=== PATIENT | male | born 1945 | race African-American/Black ===

== ENCOUNTER 2017-04-15 10:45 | Inpatient (IN) | payer MEDICARE ==
[2017-04-15 11:29] LABS: #Basophils 0.1 thou/uL (0.0-0.2); #Lymphocytes 1.4 thou/uL (1.20-3.40); #Monocytes 1.1 thou/uL (0.11-0.59); #Neutrophils 17.3 thou/uL (1.40-6.50); %Basophils 0.3 % (0.0-1.0); %Eosinophils 0.1 % (0.0-10.0); %Lymphocytes 7.1 % (21.0-51.0); %Monocytes 5.5 % (0.0-10.0); Hematocrit 41.6 % (42.0-52.0); Red Blood Cell (RBC) Count 4.63 mill/uL (4.70-6.10); White Blood Cell (WBC) Count 19.9 thou/uL (4.8-10.8)
[2017-04-15 11:48] LABS: Troponin I 0.081 ng/mL (< 0.028)
--- NOTE | 2017-04-15 11:49 | RAD ---
PORTABLE CHEST ONE VIEW: Date: 04-15-17 Time: 10:59 a.m. History: Altered mental status. FINDINGS: Comparison made with 10-16-16. The heart size is normal. The lungs are well expanded without confluent areas of consolidation, pneu mothorax, elsie pleural edema or pleural effusions. IMPRESSION: No radiographic evidence of acute cardiopulmonary process. POS: H
[2017-04-15 11:52] LABS: ALT (SGPT) 11 U/L (8-55); AST (SGOT) 38 U/L (5-34); Alkaline Phosphatase 78 U/L (40-150); Anion Gap 14 mmol/L (10-20); BUN (Urea Nitrogen) 12 mg/dL (8.4-25.7); Bilirubin, Total 1.4 mg/dL (0.2-1.2); Calc. Creatinine Clearance 0 mL/min (70-130); Calcium 11.4 mg/dL (7.8-10.44); Carbon Dioxide 20 mmol/L (23-31); Chloride 109 mmol/L (98-107); Estimated GFR-MDRD 65; Globulin 4.3 g/dL (2.4-3.5); Lactic Acid - Sepsis 2.1 mmol/L (0.5-2.2); Protein, Total 8.3 g/dL (5.8-8.1)
[2017-04-15] MEDS ORDERED: Piperacillin/Tazobactam 4.5 GM VIAL ONE ×2 (11:56)
[2017-04-15] MEDS ORDERED: Sodium Chloride 0.9% 100 ML ONE (11:57)
--- NOTE | 2017-04-15 12:44 | CT ---
BRAIN CT WITHOUT IV CONTRAST: History: 71-year-old male with altered mental status, fever. Comparison: 10-16-16 FINDINGS: Focal area of soft tissue swelling/injury over the posterior parietal region just to the right of mi dline. There is some atrophy and chronic white matter ischemic changes. There are several circumscri bed areas of lacunar infarct involving the right basal ganglia and periventricular region. There are some sinus mucosal changes with some possible minimal blood or fluid in the left maxillary sinus. T he mastoids appear clear. IMPRESSION: Atrophy and chronic white matter ischemic changes. Several old right basal ganglia and periventricul ar lacunar infarcts. Right sided focal scalp swelling/injury over the right parietal region of the s kull just to the right of midline. Sinus mucosal disease with a small amount of fluid in the left ma xillary sinus, possibly blood. POS: SAE
[2017-04-15] MEDS ORDERED: Calcium Carbonate 500 MG ChewTAB PO PRN (12:45)
[2017-04-15] MEDS ORDERED: Dextrose 5% in Water 1,000 ML IV PRN (12:45)
[2017-04-15] MEDS ORDERED: Senokot 8.6 MG TAB PO PRN ×2 (12:45)
[2017-04-15] MEDS ORDERED: Bisacodyl 5 MG TAB PO PRN ×2 (12:45)
[2017-04-15] MEDS ORDERED: Benzonatate 100 MG CAP PO PRN (12:45)
[2017-04-15] MEDS ORDERED: Loratadine 10 MG TAB PO PRN (12:45)
[2017-04-15] MEDS ORDERED: Ondansetron HCl/PF 4 MG/2 ML Vial IVP PRN (12:45)
[2017-04-15] MEDS ORDERED: HumaLOG 300 UNITS/3 ML VIAL SC PRN ×2 (12:45)
[2017-04-15] MEDS ORDERED: Sodium Chloride 0.9% 1,000 ML IV SCH (12:45)
[2017-04-15] MEDS ORDERED: Mag-Al 1200 mg/1200 mg/30 ML UDCUP PO PRN (12:45)
[2017-04-15] MEDS ORDERED: Diabetic Tussin 200 MG/10 ML UDCUP PO PRN (12:45)
[2017-04-15] MEDS ORDERED: Famotidine 20 MG TAB PO SCH (12:45)
[2017-04-15] MEDS ORDERED: Nitroglycerin 0.4 MG TAB (25 Tab Bottle) SL PRN (12:45)
[2017-04-15] MEDS ORDERED: Dextrose 50% Abboject 50 ML SYRINGE SLOW IVP PRN (12:45)
[2017-04-15 12:54] LABS: Bilirubin Negative (Negative); Blood, Urine Large (Negative); Glucose, Urine (Dipstick) Negative (Negative); Ketone, Urine Trace mg/dL (Negative); Nitrite Negative (Negative); Protein, Urine (Dipstick) 100 mg/dL (Neg-Trace); Urobilinogen 0.2 mg/dL (0.2-1.0)
[2017-04-15 12:55] LABS: Bacteria/HPF None Seen HPF (None Seen); Hyaline Casts/LPF 0-3 HYALINE CAST LPF (0-3 Hyaline); RBC/HPF 21-50 HPF (0-3); Squamous Epithelial None Seen HPF (0-3); WBC/HPF 0-3 HPF (0-3)
[2017-04-15] MEDS ORDERED: Potassium Chloride 20 MEQ TAB ONE (12:55)
[2017-04-15 15:51] LABS: Troponin I 0.066 ng/mL (< 0.028)
--- NOTE | 2017-04-15 16:32 | HP ---
DATE OF ADMISSION: 04/15/2017 PRIMARY CARE PHYSICIAN: Dr. Candido Smith. CHIEF COMPLAINT: Altered mental status and found down on the floor. HISTORY OF PRESENT ILLNESS: Mr. Yan is a pleasant 71-year-old male with past medical history of diabetes, hypertension, dyslipidemia, multiple UTIs and CVA with residual left-sided weakness who presented to the emergency room with the above-mentioned complaints. History is mainly obtained by the patient himself who was awake, alert, oriented x3 by the time I have examined him. Case has been discussed with the admitting ER physician, Dr. Eldridge and electronic medical records have been reviewed. The patient was last seen in our facility in 09/2016 for dizziness and was treated for orthostatic hypotension. CVA workup was done and was unremarkable at that time. Today Mr. Yan reported that he has been feeling poorly for the last 4 or 5 days. He has been feeling dizzy and very weak. He has been having complaints of burning with urination ongoing multiple times a day. He reports that he gets urinary tract infections easily. This morning he was feeling the same. He has been also having hot and cold spells and was feeling really chill. He became progressively worse this morning and just could not stand up and slumped to the floor. He denies any falls. He denies any loss of consciousness. He denies hitting his head or any warehouse of his body. He was found sitting down on the floor by his son who promptly brought him to the emergency room. His son is the primary demonstrator electric gas appliances for this patient. In the emergency room, he was found to be fever with a temperature of 101.8 degrees rectally. Otherwise, hemodynamically stable. Blood pressure 134/90, oxygen saturation 100% on room air. Initial workup showed leukocytosis with WBCs over 19,000 with left shift. Serum chemistries show borderline cardiac enzymes and an elevated creatinine of 1.32. His lactic acid is within normal limit at 2.1. Urinalysis showed moderate leukocyte esterase, suggesting UTI. He received Zosyn in the Emergency Room along with IV fluids, aspirin, and potassium chloride for low potassium. He is now being admitted to medical floor with a presumptive diagnosis of sepsis secondary to urinary tract infection and indeterminate troponins. PAST MEDICAL HISTORY: 1. History of cerebrovascular accident with residual left-sided weakness. 2. Hypertension. 3. Diabetes mellitus type 2. 4. History of legal blindness. 5. Dyslipidemia. 6. Multiple UTIs. 7. 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 PAST SURGICAL HISTORY: Orthopedic surgery of the left thumb. PSYCHIATRIC HISTORY: No anxiety or depression. FAMILY HISTORY- no CAD,CVA SOCIAL HISTORY: He lives by himself, but his son is official care provider for him. He has no history of drug or alcohol abuse. He admits to chewing tobacco. ALLERGIES: No known medication allergies. CURRENT MEDICATIONS: As follow; aspirin 81 mg daily, Plavix 75 mg daily, atorvastatin 20 mg daily, glimepiride 1 mg p.o. daily, lisinopril/ hydrochlorothiazide 10/12.5 mg p.o. daily, metoprolol tartrate 50 mg p.o. b.i.d. , Lyrica 100 mg p.o. b.i.d. and metformin b.i.d. All of the medication dosages would need to be further confirmed. REVIEW OF SYSTEMS: The following complete review of systems was negative, unless otherwise mentioned in the HPI or below: Constitutional: Weight loss or gain, ability to conduct usual activities. Skin: Rash, itching. Eyes: Double vision, pain. ENT/Mouth: Nose bleeding, neck stiffness, pain, tenderness. Cardiovascular: Palpitations, dyspnea on exertion, orthopnea. Respiratory: Shortness of breath, wheezing, cough, hemoptysis, fever or night sweats. Gastrointestinal: Poor appetite, abdominal pain, heartburn, nausea, vomiting, constipation, or diarrhea. Genitourinary: Urgency, frequency, dysuria, nocturia. Musculoskeletal: Pain, swelling. Neurologic/Psychiatric: Anxiety, depression. Allergy/Immunologic: Skin rash, bleeding tendency. LABORATORY DATA: CBC shows WBC 19.9 with 87% neutrophils, hemoglobin 14, platelet count 148. Serum chemistry: Potassium 3.3, chloride 109, bicarbonate 20, creatinine 1.32 with baseline anywhere from 1.2-1.3, calcium 11.4, total bilirubin 1.4, AST 38, CK-MB 7.5, troponin 0.081. Urinalysis shows large blood and moderate leukocyte esterase. Chest x-ray upon my review has no evidence to suggest pneumonia. There is no pulmonary vascular congestion or effusion. CT scan of the brain shows chronic small vessel ischemic changes with several old right basal ganglia and periventricular lacunar infarcts. He does have some evidence of right-sided scalp swelling of the right parietal region of the skull. 12-lead EKG by my interpretation has normal sinus rhythm at 91 beats per minute. PHYSICAL EXAMINATION: VITAL SIGNS: Most recent include blood pressure 126/65, pulse of 83, respirations 18, saturating 96% on room air, temperature 101.8. GENERAL: Sitting upright in bed, awake, alert, oriented x3, does not appear toxic, in no acute distress, able to provide all of the history and follow commands. His son is at bedside. HEENT: Legal blindness noted. Mucous membranes are slightly dry. No oropharyngeal exudate or erythema. Head is normocephalic, atraumatic. Extraocular movements intact. NECK: Supple without any lymphadenopathy, JVD or bruit. CHEST: Clear to auscultation without any wheezing, rales or rhonchi. CARDIOVASCULAR: Rhythm is regular without any murmur, rubs or gallops. ABDOMEN: Slightly tender diffusely, more so in the suprapubic region. No guarding, rebound or rigidity. EXTREMITIES: Free of any cyanosis, clubbing, or edema. NEUROLOGIC: Left leg weakness noticed. It is 3/5 in strength. Otherwise, no focal neurological deficits. He is awake, alert, oriented x3. SKIN: Free of any rashes or bruises. Feels warm and dry to touch. PSYCHIATRIC: Normal affect. VASCULAR: +2 pedal pulses felt bilaterally. IMPRESSION AND PLAN: 1. Sepsis, secondary to urinary tract infection. At this time, I do not have any baseline urinalysis or culture for this patient. He will be treated with broad spectrum IV antibiotics, mainly Rocephin and levofloxacin for now. Urine cultures and blood cultures have been sent and we kia follow the final result and taper antibiotic depending upon the results. He will be treated with gentle IV fluid hydration. He has received 2.5 liters of IV fluids in the emergency room. We will continue at a slower rate for now. 2. Elevated troponin, most likely demand ischemia along with rhabdomyolysis by being on the floor for a long period. We will check a CPK and continue to trend serial cardiac enzymes. His aspirin, statin, and beta puma will be restarted. He had a transthoracic echocardiogram done in 09/2016 which showed preserved LV function with suggestion of some diastolic dysfunction, but without any valvular or wall motion abnormality. 3. Hypokalemia. We will replace the potassium and recheck. This is most likely secondary to dehydration. 4. Acute kidney insufficiency. Once again, this is likely secondary to either rhabdomyolysis or poor p.o. intake in the last few days when he has been feeling sick. We will hydrate him and continue to monitor the trend. Avoid any nephrotoxic medications including FAWN inhibitors or ARBs. 5. Hypercalcemia. This seems to be chronic thing for this patient. His calcium has been as high as 12.3 in 2012 on chart review. I do not know if this has been worked up by his primary care physician as an outpatient. He has 1 PTH that was ordered in 09/2016 which was 255. He seems to have a primary hyperparathyroidism. I would recommend further workup as an outpatient. Here in the hospital, we will continue to monitor his serum calcium and treat with intravenous fluids for now. 6. History of cerebrovascular accident. We will continue with his home medication of aspirin and Plavix along with statin. 7. Diabetes mellitus. We will use insulin sliding scale and hold metformin for now to prevent further renal injury. 8. Hypertension. The patient will be continued on his metoprolol, but we will hold his FAWN inhibitor and hydrochlorothiazide to prevent renal injury at this time. 9. Leukocytosis, secondary to sepsis as per #1. We will monitor the counts. 10. Code status: FULL CODE. I have discussed this with the patient and his son who is present in the room. 11. Deep venous thrombosis and gastrointestinal prophylaxis. 12. Add p.r.n. medication orders. DISPOSITION: The patient will be admitted to medical floor for sepsis secondary to UTI. Further management will depend upon his clinical course and the results of his cultures. Estimated length of stay at this time is 2-3 midnight at the very least. We will add OT, PT ordered at this time. He may benefit from either inpatient rehab or fdc facility prior to discharge. VERN
[2017-04-15] MEDS: Sodium Chloride 0.9% 1,000 ML IV SCH ×2 (16:49→21:50)
[2017-04-15] MEDS: cefTRIAXone\\ROCEPHIN 2 GM in Sodium Chloride 0.9% 100 ML IVPB SCH (16:49)
[2017-04-15] MEDS: hydrALAZINE 20 MG/ML VIAL SLOW IVP PRN (18:14)
[2017-04-15] MEDS ORDERED: Pregabalin 50 MG CAP PO SCH (18:30)
[2017-04-15 19:01] LABS: Troponin I 0.058 ng/mL (< 0.028)
[2017-04-15 19:16] VITALS: BMI 25.8
[2017-04-15] MEDS: Heparin 5,000 UNITS/ML VIAL SC SCH (21:45)
[2017-04-15] MEDS: Acetaminophen 325 MG TAB PO PRN (21:46)
[2017-04-15] MEDS: Metoprolol Tartrate 50 MG TAB PO SCH (21:46)
[2017-04-16] MEDS: hydrALAZINE 20 MG/ML VIAL SLOW IVP PRN ×2 (04:49→12:25)
[2017-04-16 06:42] LABS: Anion Gap 13 mmol/L (10-20); BUN (Urea Nitrogen) 12 mg/dL (8.4-25.7); Calc. Creatinine Clearance 70 mL/min (70-130); Calcium 11.2 mg/dL (7.8-10.44); Carbon Dioxide 19 mmol/L (23-31); Chloride 114 mmol/L (98-107); Estimated GFR-MDRD 75
[2017-04-16 06:44] LABS: Hematocrit 41.1 % (42.0-52.0); Mean Platelet Volume 9.4 fL (7.4-10.4); Red Blood Cell (RBC) Count 4.66 mill/uL (4.70-6.10); White Blood Cell (WBC) Count 20.3 thou/uL (4.8-10.8)
[2017-04-16 06:54] LABS: Band 6 % (5-11); Neutrophil 78 % (42-75)
[2017-04-16] MEDS: Sodium Chloride 0.9% 1,000 ML IV SCH (08:23)
[2017-04-16] MEDS: Aspirin 81 mg Enteric Coated Tablet PO SCH (08:27)
[2017-04-16] MEDS: Clopidogrel Bisulfate 75 MG TAB PO SCH (08:27)
[2017-04-16] MEDS: Metoprolol Tartrate 50 MG TAB PO SCH ×2 (08:27→20:01)
[2017-04-16] MEDS: Pregabalin 50 MG CAP PO SCH ×2 (08:27→20:02)
[2017-04-16] MEDS: Heparin 5,000 UNITS/ML VIAL SC SCH ×2 (08:29→20:01)
--- NOTE | 2017-04-16 12:19 | PDOC.PN ---
- Subjective Encounter Start Date: 04/16/17 Encounter Start Time: 10:30 -: old records requested/rev Patient seen and examined. No new complaints. No overnight events, no fever - Objective MAR Reviewed: Yes Vital Signs & Weight: Vital Signs (12 hours) Temp Pulse Resp BP BP Pulse Ox 04/16/17 08:00 98.7 F 87 20 98 04/16/17 07:47 98.7 F 87 20 161/83 H 98 04/16/17 06:36 98.6 F 89 18 170/93 H 99 04/16/17 05:43 166/84 H 04/16/17 04:49 80 170/93 H 04/16/17 04:35 98.9 F 80 18 Weight Weight 185 lb 3 oz I&O: 04/15/17 04/16/17 04/17/17 06:59 06:59 06:59 Output Total 1450 Balance -1450 Result Diagrams: 04/16/17 06:00 04/16/17 06:00 Additional Labs: Accuchecks 04/16/17 04/15/17 04/15/17 04:36 21:07 16:39 POC Glucose 80 97 124 H Phys Exam - Physical Examination Constitutional: NAD HEENT: PERRLA, moist MMs, sclera anicteric Neck: no JVD, supple Respiratory: no wheezing, no rales, no rhonchi Cardiovascular: RRR, no significant murmur, no rub Gastrointestinal: soft, non-tender, no distention, positive bowel sounds Musculoskeletal: no edema, pulses present Neurological: non-focal, normal sensation, moves all 4 limbs Psychiatric: normal affect, A&O x 3 Skin: no rash, normal turgor Dx/Plan (1) Acute kidney failure Status: Acute (2) Demand ischemia Code(s): I24.8 - OTHER FORMS OF ACUTE ISCHEMIC HEART DISEASE Status: Acute (3) Hypercalcemia Code(s): E83.52 - HYPERCALCEMIA Status: Acute (4) Hypokalemia Code(s): E87.6 - HYPOKALEMIA Status: Acute (5) Sepsis Code(s): A41.9 - SEPSIS, UNSPECIFIED ORGANISM Status: Acute (6) UTI (urinary tract infection) Status: Acute (7) CAD (coronary artery disease) Code(s): I25.10 - ATHSCL HEART DISEASE OF [place] CORONARY ARTERY W/O ANG PCTRS Status: Chronic (8) DMII (diabetes mellitus, type 2) Status: Chronic (9) Dyslipidemia Code(s): E78.5 - HYPERLIPIDEMIA, UNSPECIFIED Status: Chronic (10) HTN (hypertension) Code(s): I10 - ESSENTIAL (PRIMARY) HYPERTENSION Status: Chronic (11) History of CVA (cerebrovascular accident) Code(s): Z86.73 - PRSNL HX OF TIA (TIA), AND CEREB INFRC W/O RESID DEFICITS Status: Chronic - Plan cont current plan of care * reduce IVF * continue rocephin and levaquin * get CT stone protcol * medication reviewed as below * symptomatic treatment * follow up on culture * repeat labs tomorrow. Review of Systems - Review of Systems Constitutional: negative: Fever, Chills, Sweats, Weakness, Malaise, Other Eyes: negative: Pain, Vision Change, Conjunctivae Inflammation, Eyelid Inflammation, Redness, Other ENT: negative: Ear Pain, Ear Discharge, Nose Pain, Nose Discharge, Nose Congestion, Mouth Pain, Mouth Swelling, Throat Pain, Throat Swelling, Other Respiratory: negative: Cough, Dry, Shortness of Breath, Hemoptysis, SOB with Excertion, Pleuritic Pain, Sputum, Wheezing Cardiovascular: negative: Chest Pain, Palpitations, Orthopnea, Paroxysmal Noc. Dyspnea, Edema, Light Headedness, Other Gastrointestinal: negative: Nausea, Vomiting, Abdominal Pain, Diarrhea, Constipation, Melena, Hematochezia, Other Genitourinary: negative: Dysuria, Frequency, Incontinence, Hematuria, Retention , Other Musculoskeletal: negative: Neck Pain, Shoulder Pain, Arm Pain, Back Pain, Hand Pain, Leg Pain, Foot Pain, Other - Medications/Allergies Allergies/Adverse Reactions: Allergies Allergy/AdvReac Type Severity Reaction Status Date / Time No Known Allergies Allergy Verified 04/15/17 14:52 Medications: Current Medications Acetaminophen (Tylenol) 650 mg PO Q4H PRN PRN Reason: Headache/Fever or Pain Last Admin: 04/15/17 21:46 Dose: 650 mg Al Hydroxide/Mg Hydroxide (Maalox) 30 ml PO Q6H PRN PRN Reason: Heartburn or Indigestion Aspirin (Ecotrin) 81 mg PO DAILY [facility]ODA Last Admin: 04/16/17 08:27 Dose: 81 mg Benzonatate (Tessalon) 100 mg PO Q4H PRN PRN Reason: Cough Bisacodyl (Dulcolax) 10 mg PO DAILYPRN PRN PRN Reason: Constipation Bisacodyl (Dulcolax) 10 mg PO DAILYPRN PRN PRN Reason: Constipation Calcium Carbonate (Tums) 1,000 mg PO Q4H PRN PRN Reason: Heartburn or Indigestion Clopidogrel Bisulfate (Plavix) 75 mg PO DAILY [facility] Last Admin: 04/16/17 08:27 Dose: 75 mg Dextrose/Water (Dextrose 50%) 25 gm SLOW IVP PRN PRN PRN Reason: Hypoglycemia Famotidine (Pepcid) 20 mg PO BIDPRN [facility] Glucagon (Glucagon) 1 mg IM PRN PRN PRN Reason: Hypoglycemia Guaifenesin (Robitussin Sf) 200 mg PO Q4H PRN PRN Reason: Cough Heparin Sodium (Porcine) (Heparin) 5,000 units SC BID [facility] Last Admin: 04/16/17 08:29 Dose: 5,000 units Hydralazine HCl (Apresoline) 10 mg SLOW IVP Q4H PRN PRN Reason: SBP Greater Than 170 Last Admin: 04/16/17 04:49 Dose: 10 mg Dextrose/Water (D5w) 1,000 mls @ 0 mls/hr IV .Q0M PRN; As Directed PRN Reason: Hypoglycemia Ceftriaxone Sodium 2 gm/ (Sodium Chloride) 100 mls @ 200 mls/hr IVPB Q24HR [facility] Last Admin: 04/15/17 16:49 Dose: 100 mls Levofloxacin 500 mg/ Device 100 mls @ 100 mls/hr IVPB 1500 [facility] Last Admin: 04/15/17 14:17 Dose: 100 mls Sodium Chloride (Normal Saline 0.9%) 1,000 mls @ 75 mls/hr IV .[id number] [facility] Last Admin: 04/16/17 08:23 Dose: 1,000 mls Insulin Human Lispro (Humalog) 0 units SC .MODERATE SLIDING SC PRN PRN Reason: Moderate Correctional Scale Insulin Human Lispro (Humalog) 0 units SC .BEDTIME SLIDING SC PRN PRN Reason: Bedtime Correctional Scale Lactulose (Lactulose) 10 gm PO DAILYPRN PRN PRN Reason: Constipation Loratadine (Claritin) 10 mg PO DAILYPRN PRN PRN Reason: Sinus Symptoms Metoprolol Tartrate (Lopressor) 50 mg PO BID [facility] Last Admin: 04/16/17 08:27 Dose: 50 mg Nitroglycerin (Nitrostat) 0.4 mg SL Q5MIN PRN PRN Reason: Chest Pain Ondansetron HCl (Zofran) 4 mg IVP Q6H PRN PRN Reason: Nausea/Vomiting Pregabalin (Lyrica) 100 mg PO BID [facility] Last Admin: 04/16/17 08:27 Dose: 100 mg Senna (Senokot) 2 tab PO HSPRN PRN PRN Reason: Constipation Sodium Chloride (Flush - Normal Saline) 10 ml IVF Q12HR [facility] Last Admin: 04/16/17 08:29 Dose: Not Given Sodium Chloride (Flush - Normal Saline) 10 ml IVF PRN PRN PRN Reason: Saline Flush Tramadol HCl (Ultram) 50 mg PO Q4H PRN PRN Reason: Moderate Pain (4-6)
[2017-04-16] MEDS: cefTRIAXone\\ROCEPHIN 2 GM in Sodium Chloride 0.9% 100 ML IVPB SCH (15:00)
--- NOTE | 2017-04-16 15:05 | CT ---
CT ABDOMEN AND PELVIS PERFORMED WITHOUT CONTRAST ENHANCEMENT: History: Sepsis, UTI. FINDINGS: The lung bases are clear of infiltrative process. There is a noncalcified right lower lobe 5 mm pulm onary nodule noted. The liver, spleen, pancreas regions appear unremarkable. Slight increased attenuation in the gallbla dder is seen. This could represent sludge, less likely stone, if indicated ultrasound is suggested. Right and left adrenal glands are normal in appearance. Right and left kidneys show numerous bilater al hypodensities, most likely all cysts. The largest is a 5.8 cm cyst involving the left kidney. The re are no renal calculi demonstrated and no signs of obstruction. There is no significant periaortic or mesenteric adenopathy. CT OF PELVIS PERFORMED WITHOUT CONTRAST ENHANCEMENT: Prostate is markedly enlarged. There is bladder wall thickening, probably on the basis of bladder ou tlet obstruction. A small amount of air seen in the bladder, presumably related to catheterization. The appendix is normal. Review of osseous structures show minimal arthritic changes of the spine. IMPRESSION: 1. Enlarged prostate with bladder wall thickening. 2. Bilateral renal cysts. 3. Questionable sludge or small stones within the gallbladder. POS: OFF
--- OUTSIDE RECORDS SUMMARY | 2017-04-16 17:56 | XMS | Clinical Summary ---
:1945 Author Organization [facility] Address [address] [place] [address] Phone Care Team Providers Name Role Phone , Primary Care Provider Unavailable Allergies No Known Allergies Current Medications Prescription Sig. Disp. Refills Start Date End Date Status metoprolol (LOPRESSOR) 50 Take 50 mg by mouth Active MG tablet 2 (two) times daily. glimepiride (AMARYL) 1 MG Take 1 mg by mouth Active tablet every morning before breakfast. atorvastatin (LIPITOR) 20 Take 20 mg by mouth Active MG tablet daily. latanoprost (XALATAN) 1 drop nightly. Active 0.005 % ophthalmic solution timolol (BETIMOL) 0.25 % 1-2 drops 2 (two) Active ophthalmic solution times daily. dorzolamide (TRUSOPT) 2 % 1 drop 3 (three) Active ophthalmic solution times daily. clopidogrel (PLAVIX) 300 Take 300 mg by Active mg Tab mouth once. Active Problems Not on file Social History Tobacco Use Types Packs/Day Years Used Date Never Smoker Smokeless Tobacco: Current User Comments:1/2 can per day Alcohol Use Drinks/Week oz/Week Comments No Sex Assigned at Date Recorded Not on file Last Filed Vital Signs Vital Sign Reading Time Taken Blood Pressure 145/90 02/22/2015 3:00 PM CDT Pulse 51 02/22/2015 3:00 PM CDT Temperature 36.3 C (97.4 F) 02/22/2015 2:39 PM CDT Respiratory Rate 12 02/22/2015 3:00 PM CDT Oxygen Saturation 96% 02/22/2015 3:00 PM CDT Inhaled Oxygen Concentration - - Weight 79.4 kg (175 lb) 02/21/2015 3:08 PM CDT Height 182.9 cm (6') 02/21/2015 3:08 PM CDT Body Mass Index 23.73 02/21/2015 3:08 PM CDT Plan of Treatment Not on file Implants Implanted Type Area Parachute Line Tier Device Expiration Model / Identifier Date Serial / Lot Glaucoma Implant,[id number] 350mm - [id number] Ophthalmology Left: ADVANCED 11/16/2016 [id number] / Implanted:Qty: 1 on 02/22/2015 by Chelsey Castellon MD Eye [employer] [id number] / FORMER [employer] Cornea Half Halo Half Thickness Left: LIMIRIAM 12/28/2015 / Implanted:Qty: 1 on 02/22/2015 by Chelsey Castellon MD Eye [employer] [id number] / Results Not on filefrom Last 3 Months
[2017-04-17] MEDS: Sodium Chloride 0.9% 1,000 ML IV SCH (00:45)
[2017-04-17] MEDS: traMADol HCl 50 MG TAB PO PRN ×2 (00:50→12:19)
[2017-04-17] MEDS: Acetaminophen 325 MG TAB PO PRN ×2 (00:51→12:19)
[2017-04-17 04:45] LABS: #Lymphocytes 1.5 thou/uL (1.20-3.40); #Monocytes 0.8 thou/uL (0.11-0.59); %Basophils 0.3 % (0.0-1.0); %Eosinophils 0.4 % (0.0-10.0); %Lymphocytes 13.5 % (21.0-51.0); %Monocytes 7.2 % (0.0-10.0); Hematocrit 36.3 % (42.0-52.0); Mean Platelet Volume 9.6 fL (7.4-10.4); Red Blood Cell (RBC) Count 4.12 mill/uL (4.70-6.10); White Blood Cell (WBC) Count 11.5 thou/uL (4.8-10.8)
[2017-04-17 05:03] LABS: Anion Gap 9 mmol/L (10-20); BUN (Urea Nitrogen) 14 mg/dL (8.4-25.7); Calc. Creatinine Clearance 76 mL/min (70-130); Calcium 10.7 mg/dL (7.8-10.44); Carbon Dioxide 22 mmol/L (23-31); Chloride 114 mmol/L (98-107); Estimated GFR-MDRD 82
[2017-04-17] MEDS ORDERED: Potassium Chloride 20 MEQ TAB PO SCH (07:30)
[2017-04-17 07:48] LABS: Magnesium 1.7 mg/dL (1.6-2.6); Phosphorus 2.3 mg/dL (2.3-4.7)
[2017-04-17] MEDS: Aspirin 81 mg Enteric Coated Tablet PO SCH (09:52)
[2017-04-17] MEDS: Pregabalin 50 MG CAP PO SCH ×2 (09:52→21:13)
[2017-04-17] MEDS: Metoprolol Tartrate 50 MG TAB PO SCH ×2 (09:54→21:14)
[2017-04-17] MEDS: Atorvastatin Calcium 20 MG TAB PO SCH (09:54)
[2017-04-17] MEDS: Clopidogrel Bisulfate 75 MG TAB PO SCH (09:55)
[2017-04-17] MEDS: Heparin 5,000 UNITS/ML VIAL SC SCH ×2 (09:55→21:14)
[2017-04-17] MEDS: Lisinopril 10 MG TAB PO SCH ×2 (09:55→21:14)
--- NOTE | 2017-04-17 11:25 | PDOC.PN ---
- Subjective Encounter Start Date: 04/17/17 Encounter Start Time: 09:45 Patient seen and examined. No new complaints. No overnight events - Objective MAR Reviewed: Yes Vital Signs & Weight: Vital Signs (12 hours) Temp Pulse Resp BP BP Pulse Ox 04/17/17 09:55 178/94 H 04/17/17 07:30 98.2 F 67 20 166/88 H 100 04/17/17 04:00 97.8 F 67 18 162/88 H 98 04/17/17 01:28 155/86 H 04/17/17 00:34 98.7 F 85 18 98 Weight Weight 185 lb 3 oz I&O: 04/16/17 04/17/17 04/18/17 06:59 06:59 06:59 Intake Total 840 Output Total 1450 Balance -1450 840 Result Diagrams: 04/17/17 04:21 04/17/17 04:21 Additional Labs: Accuchecks 04/17/17 04/16/17 04/16/17 05:19 20:31 16:47 POC Glucose 95 90 81 04/16/17 12:18 POC Glucose 86 Radiology Reviewed by me: Yes (CT abdomen) Phys Exam - Physical Examination Constitutional: NAD HEENT: PERRLA, moist MMs, sclera anicteric Neck: no JVD, supple Respiratory: no wheezing, no rales, no rhonchi Cardiovascular: RRR, no significant murmur, no rub Gastrointestinal: soft, non-tender, no distention, positive bowel sounds Musculoskeletal: no edema, pulses present Neurological: non-focal, normal sensation, moves all 4 limbs Psychiatric: normal affect, A&O x 3 Skin: no rash, normal turgor Dx/Plan (1) Acute kidney failure Status: Resolved (2) Demand ischemia Code(s): I24.8 - OTHER FORMS OF ACUTE ISCHEMIC HEART DISEASE Status: Acute (3) Hypercalcemia Code(s): E83.52 - HYPERCALCEMIA Status: Acute (4) Hypokalemia Code(s): E87.6 - HYPOKALEMIA Status: Acute (5) Sepsis Code(s): A41.9 - SEPSIS, UNSPECIFIED ORGANISM Status: Acute (6) UTI (urinary tract infection) Status: Acute (7) CAD (coronary artery disease) Code(s): I25.10 - ATHSCL HEART DISEASE OF [place] CORONARY ARTERY W/O ANG PCTRS Status: Chronic (8) DMII (diabetes mellitus, type 2) Status: Chronic (9) Dyslipidemia Code(s): E78.5 - HYPERLIPIDEMIA, UNSPECIFIED Status: Chronic (10) HTN (hypertension) Code(s): I10 - ESSENTIAL (PRIMARY) HYPERTENSION Status: Chronic (11) History of CVA (cerebrovascular accident) Code(s): Z86.73 - PRSNL HX OF TIA (TIA), AND CEREB INFRC W/O RESID DEFICITS Status: Chronic (12) Hyperparathyroidism Code(s): E21.3 - HYPERPARATHYROIDISM, UNSPECIFIED Status: Acute - Plan cont current plan of care, continue antibiotics * DC IVF * continue IV antibiotics, rocephin and levaquin * follow culture * ambulate as tolerated. * home medication reconciled Review of Systems - Review of Systems ENT: negative: Ear Pain, Ear Discharge, Nose Pain, Nose Discharge, Nose Congestion, Mouth Pain, Mouth Swelling, Throat Pain, Throat Swelling, Other Respiratory: negative: Cough, Dry, Shortness of Breath, Hemoptysis, SOB with Excertion, Pleuritic Pain, Sputum, Wheezing Cardiovascular: negative: Chest Pain, Palpitations, Orthopnea, Paroxysmal Noc. Dyspnea, Edema, Light Headedness, Other Gastrointestinal: negative: Nausea, Vomiting, Abdominal Pain, Diarrhea, Constipation, Melena, Hematochezia, Other Genitourinary: negative: Dysuria, Frequency, Incontinence, Hematuria, Retention , Other Musculoskeletal: negative: Neck Pain, Shoulder Pain, Arm Pain, Back Pain, Hand Pain, Leg Pain, Foot Pain, Other Skin: negative: Rash, Lesions, Bob, Bruising, Other - Medications/Allergies Allergies/Adverse Reactions: Allergies Allergy/AdvReac Type Severity Reaction Status Date / Time No Known Allergies Allergy Verified 04/15/17 14:52 Medications: Current Medications Acetaminophen (Tylenol) 650 mg PO Q4H PRN PRN Reason: Headache/Fever or Pain Last Admin: 04/17/17 00:51 Dose: 650 mg Al Hydroxide/Mg Hydroxide (Maalox) 30 ml PO Q6H PRN PRN Reason: Heartburn or Indigestion Aspirin (Ecotrin) 81 mg PO DAILY [facility] Last Admin: 04/17/17 09:52 Dose: 81 mg Atorvastatin Calcium (Lipitor) 20 mg PO DAILY [facility] Last Admin: 04/17/17 09:54 Dose: 20 mg Benzonatate (Tessalon) 100 mg PO Q4H PRN PRN Reason: Cough Bisacodyl (Dulcolax) 10 mg PO DAILYPRN PRN PRN Reason: Constipation Bisacodyl (Dulcolax) 10 mg PO DAILYPRN PRN PRN Reason: Constipation Clopidogrel Bisulfate (Plavix) 75 mg PO DAILY [facility] Last Admin: 04/17/17 09:55 Dose: 75 mg Dextrose/Water (Dextrose 50%) 25 gm SLOW IVP PRN PRN PRN Reason: Hypoglycemia Famotidine (Pepcid) 20 mg PO BIDPRN [facility] Glucagon (Glucagon) 1 mg IM PRN PRN PRN Reason: Hypoglycemia Guaifenesin (Robitussin Sf) 200 mg PO Q4H PRN PRN Reason: Cough Heparin Sodium (Porcine) (Heparin) 5,000 units SC BID [facility] Last Admin: 04/17/17 09:55 Dose: 5,000 units Hydralazine HCl (Apresoline) 10 mg SLOW IVP Q4H PRN PRN Reason: SBP Greater Than 170 Last Admin: 04/16/17 12:25 Dose: 10 mg Dextrose/Water (D5w) 1,000 mls @ 0 mls/hr IV .Q0M PRN; As Directed PRN Reason: Hypoglycemia Ceftriaxone Sodium 2 gm/ (Sodium Chloride) 100 mls @ 200 mls/hr IVPB Q24HR [facility] Last Admin: 04/16/17 15:00 Dose: 100 mls Levofloxacin 500 mg/ Device 100 mls @ 100 mls/hr IVPB 1500 [facility] Last Admin: 04/16/17 16:29 Dose: 100 mls Insulin Human Lispro (Humalog) 0 units SC .MODERATE SLIDING SC PRN PRN Reason: Moderate Correctional Scale Insulin Human Lispro (Humalog) 0 units SC .BEDTIME SLIDING SC PRN PRN Reason: Bedtime Correctional Scale Lactulose (Lactulose) 10 gm PO DAILYPRN PRN PRN Reason: Constipation Lisinopril (Zestril) 10 mg PO BID [facility] Last Admin: 04/17/17 09:55 Dose: 10 mg Loratadine (Claritin) 10 mg PO DAILYPRN PRN PRN Reason: Sinus Symptoms Metformin HCl (Glucophage) 500 mg PO QPM-[facility] Metoprolol Tartrate (Lopressor) 50 mg PO BID [facility] Last Admin: 04/17/17 09:54 Dose: 50 mg Nitroglycerin (Nitrostat) 0.4 mg SL Q5MIN PRN PRN Reason: Chest Pain Ondansetron HCl (Zofran) 4 mg IVP Q6H PRN PRN Reason: Nausea/Vomiting Pregabalin (Lyrica) 100 mg PO BID [facility] Last Admin: 04/17/17 09:52 Dose: 100 mg Senna (Senokot) 2 tab PO HSPRN PRN PRN Reason: Constipation Sodium Chloride (Flush - Normal Saline) 10 ml IVF Q12HR [facility] Last Admin: 04/17/17 10:03 Dose: 10 ml Sodium Chloride (Flush - Normal Saline) 10 ml IVF PRN PRN PRN Reason: Saline Flush Tramadol HCl (Ultram) 50 mg PO Q4H PRN PRN Reason: Moderate Pain (4-6) Last Admin: 04/17/17 00:50 Dose: 50 mg
[2017-04-17] MEDS: hydrALAZINE 20 MG/ML VIAL SLOW IVP PRN (12:20)
[2017-04-17] MEDS: cefTRIAXone\\ROCEPHIN 2 GM in Sodium Chloride 0.9% 100 ML IVPB SCH (16:06)
[2017-04-17] MEDS: metFORMIN 500 MG TAB PO SCH (17:11)
[2017-04-18] MEDS: Acetaminophen 325 MG TAB PO PRN ×3 (04:10→21:26)
[2017-04-18] MEDS: Metoprolol Tartrate 50 MG TAB PO SCH ×2 (09:19→21:27)
[2017-04-18] MEDS: Lisinopril 10 MG TAB PO SCH ×2 (09:19→21:28)
[2017-04-18] MEDS: Pregabalin 50 MG CAP PO SCH ×2 (09:20→21:26)
[2017-04-18] MEDS: Aspirin 81 mg Enteric Coated Tablet PO SCH (09:20)
[2017-04-18] MEDS: Clopidogrel Bisulfate 75 MG TAB PO SCH (09:20)
[2017-04-18] MEDS: Atorvastatin Calcium 20 MG TAB PO SCH (09:20)
[2017-04-18] MEDS: Heparin 5,000 UNITS/ML VIAL SC SCH ×2 (09:21→21:28)
--- NOTE | 2017-04-18 10:22 | PDOC.PN ---
- Subjective Encounter Start Date: 04/18/17 Encounter Start Time: 09:50 Patient seen and examined. No new complaints. No overnight events - Objective MAR Reviewed: Yes Vital Signs & Weight: Vital Signs (12 hours) Temp Pulse Resp BP BP Pulse Ox 04/18/17 09:19 148/83 H 04/18/17 08:17 99.7 F H 70 16 98 04/18/17 08:15 98.3 F 71 16 169/81 H 98 04/18/17 03:57 99.7 F H 70 16 141/79 H 99 04/17/17 23:41 99.0 F 70 16 136/84 100 Weight Weight 185 lb 3 oz I&O: 04/17/17 04/18/17 04/19/17 06:59 06:59 06:59 Intake Total 840 1600 Balance 840 1600 Result Diagrams: 04/17/17 04:21 04/17/17 04:21 Additional Labs: Accuchecks 04/18/17 04/17/17 04/17/17 05:41 20:32 16:50 POC Glucose 110 126 H 115 H 04/17/17 12:15 POC Glucose 83 Phys Exam - Physical Examination Constitutional: NAD HEENT: PERRLA, moist MMs, sclera anicteric Neck: no JVD, supple Respiratory: no wheezing, no rales, no rhonchi Cardiovascular: RRR, no significant murmur, no rub Gastrointestinal: soft, non-tender, no distention, positive bowel sounds Musculoskeletal: no edema, pulses present Neurological: non-focal, normal sensation Lymphatic: no nodes Psychiatric: normal affect, A&O x 3 Skin: no rash, normal turgor Dx/Plan (1) Acute kidney failure Status: Resolved (2) Demand ischemia Code(s): I24.8 - OTHER FORMS OF ACUTE ISCHEMIC HEART DISEASE Status: Acute (3) Hypercalcemia Code(s): E83.52 - HYPERCALCEMIA Status: Acute (4) Hypokalemia Code(s): E87.6 - HYPOKALEMIA Status: Acute (5) Sepsis Code(s): A41.9 - SEPSIS, UNSPECIFIED ORGANISM Status: Acute (6) UTI (urinary tract infection) Status: Acute (7) CAD (coronary artery disease) Code(s): I25.10 - ATHSCL HEART DISEASE OF [place] CORONARY ARTERY W/O ANG PCTRS Status: Chronic (8) DMII (diabetes mellitus, type 2) Status: Chronic (9) Dyslipidemia Code(s): E78.5 - HYPERLIPIDEMIA, UNSPECIFIED Status: Chronic (10) HTN (hypertension) Code(s): I10 - ESSENTIAL (PRIMARY) HYPERTENSION Status: Chronic (11) History of CVA (cerebrovascular accident) Code(s): Z86.73 - PRSNL HX OF TIA (TIA), AND CEREB INFRC W/O RESID DEFICITS Status: Chronic (12) Hyperparathyroidism Code(s): E21.3 - HYPERPARATHYROIDISM, UNSPECIFIED Status: Acute - Plan cont current plan of care, continue antibiotics * continue rocephin and levaquin * follow up on culture result * medication reviewed as below * symptomatic treatment * overall stable and improving with current treatment. Review of Systems - Review of Systems ENT: negative: Ear Pain, Ear Discharge, Nose Pain, Nose Discharge, Nose Congestion, Mouth Pain, Mouth Swelling, Throat Pain, Throat Swelling, Other Respiratory: negative: Cough, Dry, Shortness of Breath, Hemoptysis, SOB with Excertion, Pleuritic Pain, Sputum, Wheezing Cardiovascular: negative: Chest Pain, Palpitations, Orthopnea, Paroxysmal Noc. Dyspnea, Edema, Light Headedness, Other Gastrointestinal: negative: Nausea, Vomiting, Abdominal Pain, Diarrhea, Constipation, Melena, Hematochezia, Other Genitourinary: negative: Dysuria, Frequency, Incontinence, Hematuria, Retention , Other Musculoskeletal: negative: Neck Pain, Shoulder Pain, Arm Pain, Back Pain, Hand Pain, Leg Pain, Foot Pain, Other - Medications/Allergies Allergies/Adverse Reactions: Allergies Allergy/AdvReac Type Severity Reaction Status Date / Time No Known Allergies Allergy Verified 04/15/17 14:52 Medications: Current Medications Acetaminophen (Tylenol) 650 mg PO Q4H PRN PRN Reason: Headache/Fever or Pain Last Admin: 04/18/17 04:10 Dose: 650 mg Al Hydroxide/Mg Hydroxide (Maalox) 30 ml PO Q6H PRN PRN Reason: Heartburn or Indigestion Aspirin (Ecotrin) 81 mg PO DAILY [facility] Last Admin: 04/18/17 09:20 Dose: 81 mg Atorvastatin Calcium (Lipitor) 20 mg PO DAILY [facility] Last Admin: 04/18/17 09:20 Dose: 20 mg Benzonatate (Tessalon) 100 mg PO Q4H PRN PRN Reason: Cough Bisacodyl (Dulcolax) 10 mg PO DAILYPRN PRN PRN Reason: Constipation Bisacodyl (Dulcolax) 10 mg PO DAILYPRN PRN PRN Reason: Constipation Clopidogrel Bisulfate (Plavix) 75 mg PO DAILY [facility] Last Admin: 04/18/17 09:20 Dose: 75 mg Dextrose/Water (Dextrose 50%) 25 gm SLOW IVP PRN PRN PRN Reason: Hypoglycemia Famotidine (Pepcid) 20 mg PO BIDPRN [facility] Glucagon (Glucagon) 1 mg IM PRN PRN PRN Reason: Hypoglycemia Guaifenesin (Robitussin Sf) 200 mg PO Q4H PRN PRN Reason: Cough Heparin Sodium (Porcine) (Heparin) 5,000 units SC BID [facility] Last Admin: 04/18/17 09:21 Dose: 5,000 units Hydralazine HCl (Apresoline) 10 mg SLOW IVP Q4H PRN PRN Reason: SBP Greater Than 170 Last Admin: 04/17/17 12:20 Dose: 10 mg Dextrose/Water (D5w) 1,000 mls @ 0 mls/hr IV .Q0M PRN; As Directed PRN Reason: Hypoglycemia Ceftriaxone Sodium 2 gm/ (Sodium Chloride) 100 mls @ 200 mls/hr IVPB Q24HR [facility] Last Admin: 04/17/17 16:06 Dose: 100 mls Levofloxacin 500 mg/ Device 100 mls @ 100 mls/hr IVPB 1500 [facility] Last Admin: 04/17/17 15:00 Dose: 100 mls Insulin Human Lispro (Humalog) 0 units SC .MODERATE SLIDING SC PRN PRN Reason: Moderate Correctional Scale Insulin Human Lispro (Humalog) 0 units SC .BEDTIME SLIDING SC PRN PRN Reason: Bedtime Correctional Scale Lactulose (Lactulose) 10 gm PO DAILYPRN PRN PRN Reason: Constipation Lisinopril (Zestril) 10 mg PO BID [facility] Last Admin: 04/18/17 09:19 Dose: 10 mg Loratadine (Claritin) 10 mg PO DAILYPRN PRN PRN Reason: Sinus Symptoms Metformin HCl (Glucophage) 500 mg PO QPM-WM [facility] Last Admin: 04/17/17 17:11 Dose: 500 mg Metoprolol Tartrate (Lopressor) 50 mg PO BID [facility] Last Admin: 04/18/17 09:19 Dose: 50 mg Nitroglycerin (Nitrostat) 0.4 mg SL Q5MIN PRN PRN Reason: Chest Pain Ondansetron HCl (Zofran) 4 mg IVP Q6H PRN PRN Reason: Nausea/Vomiting Pregabalin (Lyrica) 100 mg PO BID [facility] Last Admin: 04/18/17 09:20 Dose: 100 mg Senna (Senokot) 2 tab PO HSPRN PRN PRN Reason: Constipation Sodium Chloride (Flush - Normal Saline) 10 ml IVF Q12HR [facility] Last Admin: 04/18/17 09:21 Dose: 10 ml Sodium Chloride (Flush - Normal Saline) 10 ml IVF PRN PRN PRN Reason: Saline Flush Tramadol HCl (Ultram) 50 mg PO Q4H PRN PRN Reason: Moderate Pain (4-6) Last Admin: 04/17/17 12:19 Dose: 50 mg
[2017-04-18] MEDS: cefTRIAXone\\ROCEPHIN 2 GM in Sodium Chloride 0.9% 100 ML IVPB SCH (15:51)
[2017-04-18] MEDS: metFORMIN 500 MG TAB PO SCH (15:55)
[2017-04-19 04:35] LABS: #Basophils 0.1 thou/uL (0.0-0.2); #Eosinphils 0.2 thou/uL (0.0-0.7); #Lymphocytes 1.9 thou/uL (1.20-3.40); #Monocytes 0.7 thou/uL (0.11-0.59); #Neutrophils 2.5 thou/uL (1.40-6.50); %Basophils 1.2 % (0.0-1.0); %Eosinophils 4.4 % (0.0-10.0); %Lymphocytes 34.9 % (21.0-51.0); %Monocytes 12.5 % (0.0-10.0); Hematocrit 37.5 % (42.0-52.0); Mean Platelet Volume 9.1 fL (7.4-10.4); Red Blood Cell (RBC) Count 4.17 mill/uL (4.70-6.10); White Blood Cell (WBC) Count 5.3 thou/uL (4.8-10.8)
[2017-04-19 04:52] LABS: Anion Gap 10 mmol/L (10-20); BUN (Urea Nitrogen) 11 mg/dL (8.4-25.7); Calc. Creatinine Clearance 80 mL/min (70-130); Calcium 10.4 mg/dL (7.8-10.44); Carbon Dioxide 23 mmol/L (23-31); Chloride 113 mmol/L (98-107); Estimated GFR-MDRD 87
[2017-04-19] MEDS: Amlodipine 5 MG TAB PO SCH (08:26)
[2017-04-19] MEDS: Heparin 5,000 UNITS/ML VIAL SC SCH ×2 (08:27→20:44)
[2017-04-19] MEDS: Clopidogrel Bisulfate 75 MG TAB PO SCH (08:27)
[2017-04-19] MEDS: Pregabalin 50 MG CAP PO SCH ×2 (08:27→20:43)
[2017-04-19] MEDS: Lisinopril 10 MG TAB PO SCH ×2 (08:27→20:44)
[2017-04-19] MEDS: Atorvastatin Calcium 20 MG TAB PO SCH (08:27)
[2017-04-19] MEDS: Metoprolol Tartrate 50 MG TAB PO SCH ×2 (08:27→20:44)
[2017-04-19] MEDS: Aspirin 81 mg Enteric Coated Tablet PO SCH (08:27)
--- NOTE | 2017-04-19 10:36 | PDOC.PN ---
- Subjective Encounter Start Date: 04/19/17 Encounter Start Time: 07:10 Patient seen and examined. No new complaints. No overnight events - Objective MAR Reviewed: Yes Vital Signs & Weight: Vital Signs (12 hours) Temp Pulse Resp BP BP Pulse Ox 04/19/17 08:27 176/95 H 04/19/17 08:26 62 176/95 H 04/19/17 08:00 98.4 F 62 16 04/19/17 07:32 98.4 F 62 18 176/95 H 98 Weight Weight 185 lb 3 oz I&O: 04/18/17 04/19/17 04/20/17 06:59 06:59 06:59 Intake Total 1600 Balance 1600 Result Diagrams: 04/19/17 04:21 04/19/17 04:21 Additional Labs: Accuchecks 04/19/17 04/18/17 04/18/17 04:45 22:01 11:19 POC Glucose 89 91 98 Phys Exam - Physical Examination Constitutional: NAD HEENT: PERRLA, moist MMs, sclera anicteric Neck: no JVD, supple Respiratory: no wheezing, no rales, no rhonchi Cardiovascular: RRR, no significant murmur, no rub Gastrointestinal: soft, non-tender, no distention, positive bowel sounds Musculoskeletal: no edema, pulses present Neurological: non-focal, normal sensation, moves all 4 limbs Psychiatric: normal affect, A&O x 3 Skin: no rash, normal turgor Dx/Plan (1) Acute kidney failure Status: Resolved (2) Demand ischemia Code(s): I24.8 - OTHER FORMS OF ACUTE ISCHEMIC HEART DISEASE Status: Acute (3) Hypercalcemia Code(s): E83.52 - HYPERCALCEMIA Status: Acute (4) Hypokalemia Code(s): E87.6 - HYPOKALEMIA Status: Acute (5) Sepsis Code(s): A41.9 - SEPSIS, UNSPECIFIED ORGANISM Status: Acute (6) UTI (urinary tract infection) Status: Acute (7) CAD (coronary artery disease) Code(s): I25.10 - ATHSCL HEART DISEASE OF [place] CORONARY ARTERY W/O ANG PCTRS Status: Chronic (8) DMII (diabetes mellitus, type 2) Status: Chronic (9) Dyslipidemia Code(s): E78.5 - HYPERLIPIDEMIA, UNSPECIFIED Status: Chronic (10) HTN (hypertension) Code(s): I10 - ESSENTIAL (PRIMARY) HYPERTENSION Status: Chronic (11) History of CVA (cerebrovascular accident) Code(s): Z86.73 - PRSNL HX OF TIA (TIA), AND CEREB INFRC W/O RESID DEFICITS Status: Chronic (12) Hyperparathyroidism Code(s): E21.3 - HYPERPARATHYROIDISM, UNSPECIFIED Status: Acute (13) Rhabdomyolysis Code(s): M62.82 - RHABDOMYOLYSIS Status: Acute - Plan cont current plan of care, continue antibiotics, PT/OT, nursing home social worker * pt does not want to go to SNU * continue IV levaquin and rocephin * expecting discharge tomorrow * medication reviewed as below * symptomatic treatment. * replace potassium Review of Systems - Review of Systems ENT: negative: Ear Pain, Ear Discharge, Nose Pain, Nose Discharge, Nose Congestion, Mouth Pain, Mouth Swelling, Throat Pain, Throat Swelling, Other Respiratory: negative: Cough, Dry, Shortness of Breath, Hemoptysis, SOB with Excertion, Pleuritic Pain, Sputum, Wheezing Cardiovascular: negative: Chest Pain, Palpitations, Orthopnea, Paroxysmal Noc. Dyspnea, Edema, Light Headedness, Other Gastrointestinal: negative: Nausea, Vomiting, Abdominal Pain, Diarrhea, Constipation, Melena, Hematochezia, Other Genitourinary: negative: Dysuria, Frequency, Incontinence, Hematuria, Retention , Other Musculoskeletal: negative: Neck Pain, Shoulder Pain, Arm Pain, Back Pain, Hand Pain, Leg Pain, Foot Pain, Other Skin: negative: Rash, Lesions, Bob, Bruising, Other - Medications/Allergies Allergies/Adverse Reactions: Allergies Allergy/AdvReac Type Severity Reaction Status Date / Time No Known Allergies Allergy Verified 04/15/17 14:52 Medications: Current Medications Acetaminophen (Tylenol) 650 mg PO Q4H PRN PRN Reason: Headache/Fever or Pain Last Admin: 04/18/17 21:26 Dose: 650 mg Al Hydroxide/Mg Hydroxide (Maalox) 30 ml PO Q6H PRN PRN Reason: Heartburn or Indigestion Amlodipine Besylate (Norvasc) 5 mg PO DAILY [facility] Last Admin: 04/19/17 08:26 Dose: 5 mg Aspirin (Ecotrin) 81 mg PO DAILY [facility] Last Admin: 04/19/17 08:27 Dose: 81 mg Atorvastatin Calcium (Lipitor) 20 mg PO DAILY [facility] Last Admin: 04/19/17 08:27 Dose: 20 mg Benzonatate (Tessalon) 100 mg PO Q4H PRN PRN Reason: Cough Bisacodyl (Dulcolax) 10 mg PO DAILYPRN PRN PRN Reason: Constipation Bisacodyl (Dulcolax) 10 mg PO DAILYPRN PRN PRN Reason: Constipation Clopidogrel Bisulfate (Plavix) 75 mg PO DAILY [facility] Last Admin: 04/19/17 08:27 Dose: 75 mg Dextrose/Water (Dextrose 50%) 25 gm SLOW IVP PRN PRN PRN Reason: Hypoglycemia Famotidine (Pepcid) 20 mg PO BIDPRN [facility] Glucagon (Glucagon) 1 mg IM PRN PRN PRN Reason: Hypoglycemia Guaifenesin (Robitussin Sf) 200 mg PO Q4H PRN PRN Reason: Cough Heparin Sodium (Porcine) (Heparin) 5,000 units SC BID [facility] Last Admin: 04/19/17 08:27 Dose: 5,000 units Hydralazine HCl (Apresoline) 10 mg SLOW IVP Q4H PRN PRN Reason: SBP Greater Than 170 Last Admin: 04/17/17 12:20 Dose: 10 mg Dextrose/Water (D5w) 1,000 mls @ 0 mls/hr IV .Q0M PRN; As Directed PRN Reason: Hypoglycemia Ceftriaxone Sodium 2 gm/ (Sodium Chloride) 100 mls @ 200 mls/hr IVPB Q24HR [facility] Last Admin: 04/18/17 15:51 Dose: 100 mls Levofloxacin 500 mg/ Device 100 mls @ 100 mls/hr IVPB 1500 [facility] Last Admin: 04/18/17 14:53 Dose: 100 mls Insulin Human Lispro (Humalog) 0 units SC .MODERATE SLIDING SC PRN PRN Reason: Moderate Correctional Scale Insulin Human Lispro (Humalog) 0 units SC .BEDTIME SLIDING SC PRN PRN Reason: Bedtime Correctional Scale Lactulose (Lactulose) 10 gm PO DAILYPRN PRN PRN Reason: Constipation Lisinopril (Zestril) 10 mg PO BID [facility] Last Admin: 04/19/17 08:27 Dose: 10 mg Loratadine (Claritin) 10 mg PO DAILYPRN PRN PRN Reason: Sinus Symptoms Metformin HCl (Glucophage) 500 mg PO QPM-WM [facility] Last Admin: 04/18/17 15:55 Dose: 500 mg Metoprolol Tartrate (Lopressor) 50 mg PO BID [facility] Last Admin: 04/19/17 08:27 Dose: 50 mg Nitroglycerin (Nitrostat) 0.4 mg SL Q5MIN PRN PRN Reason: Chest Pain Ondansetron HCl (Zofran) 4 mg IVP Q6H PRN PRN Reason: Nausea/Vomiting Pregabalin (Lyrica) 100 mg PO BID [facility] Last Admin: 04/19/17 08:27 Dose: 100 mg Senna (Senokot) 2 tab PO HSPRN PRN PRN Reason: Constipation Sodium Chloride (Flush - Normal Saline) 10 ml IVF Q12HR [facility] Last Admin: 04/19/17 09:06 Dose: 10 ml Sodium Chloride (Flush - Normal Saline) 10 ml IVF PRN PRN PRN Reason: Saline Flush Tramadol HCl (Ultram) 50 mg PO Q4H PRN PRN Reason: Moderate Pain (4-6) Last Admin: 04/17/17 12:19 Dose: 50 mg
[2017-04-19] MEDS: cefTRIAXone\\ROCEPHIN 2 GM in Sodium Chloride 0.9% 100 ML IVPB SCH (14:18)
[2017-04-19] MEDS: metFORMIN 500 MG TAB PO SCH (16:14)
[2017-04-19] MEDS: traMADol HCl 50 MG TAB PO PRN (23:55)
[2017-04-20 07:40] VITALS: TEMP 98.2
[2017-04-20] MEDS: Aspirin 81 mg Enteric Coated Tablet PO SCH (07:41)
[2017-04-20] MEDS: Metoprolol Tartrate 50 MG TAB PO SCH (07:42)
[2017-04-20] MEDS: Atorvastatin Calcium 20 MG TAB PO SCH (07:42)
[2017-04-20] MEDS: Clopidogrel Bisulfate 75 MG TAB PO SCH (07:42)
[2017-04-20] MEDS: Pregabalin 50 MG CAP PO SCH (07:42)
[2017-04-20] MEDS: Amlodipine 5 MG TAB PO SCH (07:42)
[2017-04-20] MEDS: Lisinopril 10 MG TAB PO SCH (07:42)
[2017-04-20] MEDS: Heparin 5,000 UNITS/ML VIAL SC SCH (07:43)
[2017-04-20 09:13] VITALS: BP 157/89
--- NOTE | 2017-04-20 12:52 | DIS ---
DATE OF ADMISSION: 04/15/2017 DATE OF DISCHARGE: 04/20/2017 PRIMARY CARE PHYSICIAN: Candido Smith M.D. DISCHARGE DISPOSITION: Home with home health. PRIMARY DISCHARGE DIAGNOSES: 1. Hypercalcemia due to hyperparathyroidism. 2. Hypokalemia. 3. Demand ischemia of myocardium. 4. Rhabdomyolysis. 5. Sepsis, resolved. 6. Urinary tract infection. 7. Acute kidney failure, improved. SECONDARY DISCHARGE DIAGNOSES: Hypertension, history of cerebrovascular accident, dyslipidemia, aroldo betes type 2, and coronary artery disease. PRIMARY PROCEDURE/OPERATION: None. RADIOLOGICAL INVESTIGATION: Chest x-ray, CT brain, abdomen and pelvis CT scan. SIGNIFICANT LABORATORY DATA: WBC 5.3, hemoglobin 12.0, platelets 155. Sodium 143, potassium 3.4, B UN 11, creatinine 1.02, calcium 10.4. CK 680, vitamin D3 29.4. PTH 183. Urinalysis suggestive of UTI. Urine culture grew gram negative rivas. Blood culture negative, influenza negative. DISCHARGE MEDICATIONS: Amlodipine 5 mg p.o. daily, Lipitor 20 mg p.o. daily, Plavix 75 mg p.o. raheem y, Levaquin 500 mg p.o. daily, lisinopril 10 mg p.o. b.i.d., Claritin 10 mg p.o. daily, metoprolol t artrate 50 mg p.o. b.i.d., Lyrica 100 mg p.o. b.i.d., metformin 500 mg p.o. daily. CONTRAINDICATIONS: None. CODE STATUS: FULL CODE. INPATIENT CONSULTANTS: None. ALLERGIES: No known drug allergy. DISCHARGE PLAN: Post hospital, patient will follow up with primary care physician in 1 week. HOSPITAL COURSE: A 71-year-old male who was admitted by Dr. Ramos. Please see her H\T\P for furt her details. The patient was admitted for altered mental status and he was found down on the floor. This patient found with urinary tract infection and rhabdomyolysis. He also had acute kidney fail ure and abnormal electrolytes. While in hospital, we treated him for infection. He was also given IV fluid. With that his kidney function improved to normal. He has hypercalcemia and that is why w e did INTERIOR DESIGN INSTRUCTOR checked and we found that he has underlying hyperparathyroidism. His abnormal electrolyte s were corrected while in hospital. His sepsis resolved. He is given Levaquin upon discharge. The patient was followed by PT, OT while in hospital and they recommended sending him to a skilled n ursing home, but this patient did not want to go to any kind of rehabilitation or assisted ho me and that is why with help of caseworker protective services, we arranged home health before discharge. Patient rhabdomyolysis, improved. We discontinued IV fluid today. Plan of care discussed with the patient and family member. Patient is medically stable for discharge. PHYSICAL EXAMINATION: VITAL SIGNS: Currently, temperature 98.2, pulse 68, respiratory rate 16, blood pressure 157/89. We ight 185 pounds. GENERAL: The patient is currently alert, awake, in no acute distress. HEAD: Normocephalic, atraumatic. LUNGS: Clear. CARDIAC: S1, S2 regular without any murmur. ABDOMEN: Soft and benign. EXTREMITIES: No edema. NEUROLOGIC: Nonfocal examination.
[2017-04-20] MEDS: cefTRIAXone\\ROCEPHIN 2 GM in Sodium Chloride 0.9% 100 ML IVPB SCH (13:59)
--- NOTE | 2017-05-02 14:16 | EKG ---
Test Reason : Blood Pressure : / mmHG Vent. Rate : 091 BPM Atrial Rate : 091 BPM P-R Int : 168 ms QRS Dur : 088 ms QT Int : 376 ms P-R-T Axes : 080 148 074 degrees QTc Int : 462 ms Normal sinus rhythm Right axis deviation Pulmonary disease pattern Abnormal ECG Confirmed by MIKE BOWLES ([id number]), editor & co founder ERIN SADLER ([id number] on 05/02/2017 2:16:18 PM Referred By: Confirmed By:MIKE BOWLES
== END 2017-04-20 15:07 | disposition home health service (06) | DRG 872 ==
LOC: ERS 10:45 → T4-B 12:38
PROVIDERS: ADMIT Internal Medicine; ATTEND Internal Medicine
DX: A41.9 Sepsis, unspecified organism (principal); N17.9 Acute kidney failure, unspecified; I24.8 Other forms of acute ischemic heart disease; M62.82 Rhabdomyolysis; I69.354 Hemiplegia and hemiparesis following cerebral infarction affecting left non-dominant side; N39.0 Urinary tract infection, site not specified; E86.0 Dehydration; E87.6 Hypokalemia; I10 Essential (primary) hypertension; E11.9 Type 2 diabetes mellitus without complications; F17.220 Nicotine dependence, chewing tobacco, uncomplicated; E78.5 Hyperlipidemia, unspecified; Z79.84 Long term (current) use of oral hypoglycemic drugs; E21.3 Hyperparathyroidism, unspecified; I25.10 Atherosclerotic heart disease of native coronary artery without angina pectoris
CPT/HCPCS: 36415; 36416; 51702; 70450; 71010; 74176; 80048; 80053; 81003; 81015; 82306; 82550; 82553; 83605; 83735; 83970; 84100; 84484; 85007; 85025; 85027; 87040; 87086; 93005; 96365; A4216; G8978-GP-CJ; G8979-GP-CH; G8987-GO-CK; G8988-GO-CI; J0360; J0696; J1644; J1956; J2543; J3370; J7050

== ENCOUNTER 2018-03-26 08:57 | Outpatient (CLI) | payer MEDICARE, MEDICAID ==
--- NOTE | 2018-03-26 17:30 | NM ---
PARATHYROID SCAN WITH SPECT CT: Date: 03/26/18 HISTORY: Hyperparathyroidism, unspecified. RADIOPHARMACEUTICAL: 27 mCi technetium-99m sestamibi injected intravenously. FINDINGS: There is physiologic activity in the salivary glands, thyroid gland, and the visualized portions of t he heart. No foci of abnormally increased uptake are seen in the neck or chest. IMPRESSION: No scintigraphic evidence of parathyroid adenoma. POS: [facility]
== END 2018-03-26 08:58 | disposition home or self-care (01) ==
LOC: NM 08:57
PROVIDERS: ATTEND Internal Medicine
DX: E21.3 Hyperparathyroidism, unspecified (principal)
CPT/HCPCS: 78072; A9500